=== PATIENT | female | born 1955 | race Caucasian/White ===

== ENCOUNTER 2020-07-06 12:45 | Emergency (ER) | payer MEDICARE, BC, SELFPAY ==
[2020-07-06 12:47] VITALS: BP 110/73; PULSE 59; RESP 16; TEMP 36.6; O2SAT 96; BMI 25.8
[2020-07-06 14:36] VITALS: BP 110/73; PULSE 59; RESP 16; O2SAT 96
--- NOTE | 2020-07-06 14:36 | XRR_ITS ---
PROCEDURE INFORMATION: Exam: XR Right Shoulder Exam date and time: 07/06/2020 3:00 PM Age: 64 years old Clinical indication: Injury or trauma; Fall; Blunt trauma (contusions or hematomas); Shoulder; Right TECHNIQUE: Imaging protocol: XR Right shoulder. Views: 2 or more views. COMPARISON: No relevant prior studies available. FINDINGS: Bones/joints: There is a circumscribed 7 mm subchondral cyst in the humeral head Soft tissues: Normal. XR/XR shoulder RT min 2V* [id number] IMPRESSION: 1. No acute bone abnormality. 2. Subchondral cyst humeral head
[2020-07-06] MEDS: acetaminophen-codeine 300-30mg Tablet 1 TAB PO (14:49)
--- NOTE | 2020-07-06 14:54 | ED_ITS ---
HPI - Back Pain/Injury General: Chief Complaint: Back Pain/Injury Stated Complaint: PAIN LOWER LEGS AND LUMBAR Time Seen by Provider: 07/06/20 14:23 History of Present Illness: HPI Narrative: Patient says she fell at home day was twisting around when she got up from the bed and fell striking her right shoulder. States she hurts all over did not take pain medication. And says she did not really hurting one specific spot. MD elicited complaint: fall Pertinent past history: prior back pain and other (History of brain cancer) Onset (ago): hour(s) Timing: constant and improved Severity: mild Similar Symptoms Previously: Yes Quality: aching Context: turning/twisting Associated symptoms: Reports no associated symptoms; Deny abdominal pain, chills, fever(s), nausea or vomiting Review of Systems Const: Denies: fever(s), chills or body aches Eyes: Denies: change in vision or blurry vision ENMT: Denies: throat pain or nasal congestion Card: Denies: chest pain or dyspnea on exertion Resp: Denies: dyspnea, productive cough or non-productive cough GI: Denies: abdominal pain, nausea or vomiting Musc: Reports: extremity pain and joint pain (Right shoulder on exam) Skin/Breast: Denies: rash Neuro: Denies: headache(s) Psych: Denies: anxiety or depression Pool/Lymph: Denies: easy bruising Physical Exam Const: COMMON NORMALS: no acute distress, average body habitus and patient oriented x3 HENMT: COMMON NORMALS: normocephalic HEAD & SCALP: normal to inspection and normocephalic FACE & SINUS: normal facial exam Eye: COMMON NORMALS: conjunctivae normal GENERAL EYE: appearance normal, both eyes and all related structures CONJUNCTIVA: Yes conjunctivae normal Neck/C-Spine: COMMON NORMALS: no JVD Chest: COMMONS NORMALS: normal inspection of the chest Resp: COMMON NORMALS: normal respiratory effort and clear to auscultation bilaterally AUSCULTATION: clear to auscultation bilaterally Cardio: COMMON NORMALS: no JVD, regular rate and regular rhythm RATE: regular rate RHYTHM: regular rhythm GI: COMMON NORMALS: Normal to inspection, nondistended, normoactive bowel sounds present Extremity: COMMON NORMALS: normal to inspection and full ROM NARRATIVE EXTREMITY EXAM: On place I can find any significant pains when I palpated her right shoulder she is able to move the arm move the shoulder but she said hurts with palpation there is no swelling or bruising Neuro: COMMON NORMALS: patient oriented x3 Course Vital Signs: Vital signs: Vital Signs Temperature 97.8 F 07/06/20 12:47 Pulse Rate 59 L 07/06/20 14:36 Respiratory Rate 16 07/06/20 14:36 Blood Pressure 110/73 07/06/20 14:36 Pulse Oximetry 96 07/06/20 14:36 Coding Level of Care Code ED Digital Coordinator for Jason Ewing
[2020-07-06 15:06] VITALS: BP 104/71; PULSE 62; RESP 14; O2SAT 96
== END 2020-07-06 15:40 | disposition home or self-care (01) ==
PROVIDERS: Emergency Provider Nurse Practitioner Family
DX: M25.511 Pain in right shoulder (principal)
CPT/HCPCS: 12345; 73030; 99281; 99283

== ENCOUNTER 2020-07-14 09:56 | Outpatient (CLI) | payer MEDICARE, SELFPAY ==
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
== END 2020-07-14 09:57 | disposition home or self-care (01) ==
LOC: ONCMED 10:02
PROVIDERS: PCP Nurse Practitioner Family; Visit Provider Internal Medicine Hematology & Oncology
DX: C71.1 Malignant neoplasm of frontal lobe (principal); C79.51 Secondary malignant neoplasm of bone; R53.1 Weakness; R47.1 Dysarthria and anarthria; Z90.710 Acquired absence of both cervix and uterus; Z92.21 Personal history of antineoplastic chemotherapy; Z92.3 Personal history of irradiation; Z79.899 Other long term (current) drug therapy
CPT/HCPCS: 99205

== ENCOUNTER 2020-08-21 22:45 | Emergency (ER) | payer MEDICARE, SELFPAY ==
[2020-08-21 22:52] VITALS: BP 113/75; PULSE 81; RESP 16; TEMP 37.3; O2SAT 96; BMI 24.3
[2020-08-21 23:07] VITALS: BP 117/75; PULSE 79; RESP 22; O2SAT 96
--- NOTE | 2020-08-21 23:08 | CTR_ITS ---
PROCEDURE INFORMATION: Exam: CT Head Without Contrast Exam date and time: 08/21/2020 11:10 PM Age: 65 years old Clinical indication: Altered mental status/memory loss and fever; Prior surgery; Surgery type: Brain resection; Patient HX: AMS with fever. History of brain neoplasm with resection. TECHNIQUE: Imaging protocol: Computed tomography of the head without contrast. Radiation optimization: All CT scans at this facility use at least one of these dose optimization techniques: automated exposure control; mA and/or kV adjustment per patient size (includes targeted exams where dose is matched to clinical indication); or iterative reconstruction. COMPARISON: CT head wo con* [id number] 03/03/2018 10:47 PM RADIATION DOSE METRICS: Total DLP (mGy-cm): 742.9 FINDINGS: Brain: There is a 2.3 x 2.5 x 2.7 cm sized partly cystic mass lesion in the right centrum semiovale which is larger than on CT scan 03/03/2018 and is worrisome for recurrent tumor. This extends into the right external capsule region. There is also appears larger than on outside MRI of 06/25/2020. Cerebral ventricles: Ventricles within normal limits of size. Bones/joints: There is yoselyn hole in the right frontal region not changed. Paranasal sinuses: Visualized sinuses are unremarkable. No fluid levels. Mastoid air cells: Visualized mastoid air cells are well aerated. Soft tissues: High density areas within the tumor could represent some blood product or calcification. Other findings: No additional tumor is identified. CT/CT head wo con* [id number] IMPRESSION: 1. Findings are worrisome for recurrent tumor in the right frontal parietal region. 2. There is possible small hemorrhage within the recurrent tumor. Radiation Dose CTDIVOL = (mGy): DLP = 742.9 (mGy-cm)
--- NOTE | 2020-08-21 23:08 | XRR_ITS ---
PROCEDURE INFORMATION: Exam: XR Chest Exam date and time: 08/21/2020 11:10 PM Age: 65 years old Clinical indication: Patient HX: AMS with fever. History of brain cancer. TECHNIQUE: Imaging protocol: XR of the chest Views: 1 view. COMPARISON: CR Chest 1 [place] [id number] 03/27/2017 9:09 AM FINDINGS: Limitations: The study is made with less than full inspiration. Lungs: There is some mild subsegmental atelectasis at the left lung base. Right lung is clear. Pleural spaces: Unremarkable. No pleural effusion. No pneumothorax. Heart/Mediastinum: Heart is within normal limits of size. Bones/joints: Unremarkable. XR/XR chest 1V portable [id number] IMPRESSION: Mild left basilar atelectasis.
--- NOTE | 2020-08-21 23:09 | ECG_ITS ---
[facility] Test Date: 2020-08-21 Pat Name: Reggie Alvarado Department: Room: Gender: Female Event Marketing Assistant: : 1955 Requested By: Yair Burrell Order Number: [id number] Mattie MD: MIC SORIA Measurements Intervals [place] Rate: 70 P: 72 [place]: 193 QRS: 76 QRSD: 85 T: 90 QT: 367 QTc: 398 Interpretive Statements SINUS RHYTHM MINIMAL ST DEPRESSION [0.025+ mV ST DEPRESSION] Compared to ECG 10/23/2017 11:35:50 ST (T wave) deviation now present Sinus arrhythmia no longer present Electronically Signed On 08-22-2020 18:46:08 BUSINESS SOLUTIONS CONSULTANT by MIC SORIA [id number]
[2020-08-21] MEDS: sodium chloride 0.9% 1,000 ML 999 ML IV (23:26)
[2020-08-21 23:41] LABS: Basophils % 0.3 %; Eosinophils % 0.5 %; Hematocrit 38.8 % (37.0-47.0); Hemoglobin 13.1 g/dL (11.5-15.3); Lymphocytes # 0.8 10^3/uL (0.8-4.8); Lymphocytes % 12.5 %; Mean Corpuscular HGB Conc 33.8 g/dL (30.0-36.0); Mean Corpuscular Hemoglobin 31.6 pg (28.0-34.0); Mean Corpuscular Volume 93.7 fL (81-99); Mean Platelet Volume 9.2 fL (7.4-10.4); Monocytes # 0.4 10^3/uL (0.2-0.9); Monocytes % 5.6 %; Neutrophils % 80.3 %; Nucleated Red Blood Cells % 0 %; Platelet Count 181 10^3/cmm (130-400); Red Blood Count 4.14 10^6/uL (4.1-5.3); Red Cell Distribution Width 13.2 % (12.1-15.1); White Blood Count 6.5 10^3/uL (4.0-10.0)
--- NOTE | 2020-08-21 23:41 | PC.NURSE ---
EKG done at 2340 and shown to ER doctor
[2020-08-21 23:59] LABS: Alanine Aminotransferase 15 U/L (0-33); Albumin Level 3.4 g/dL (3.5-5.2); Alkaline Phosphatase 76 IU/L (35-105); Anion Gap 13.1 (5-19); Aspartate Amino Transferase 12 U/L (0-32); Blood Urea Nitrogen 25 mg/dL (8-23); C Reactive Protein 58.5 mg/L (0.0-4.9); Calcium 8.3 mg/dL (8.5-10.5); Carbon Dioxide 26 mmol/L (22-29); Chloride 105 mmol/L (98-107); Creatine Phosphokinase 18 U/L (26-192); Globulin 2.5 g/dL (1.3-4.6); Glomerular Filtration Rate 161.2 mL/min (90-130); Glucose 122 mg/dL (65-115); Magnesium 2.3 mg/dL (1.7-2.3); Osmolality Calculated 298 mOsm/kg (285-295); Potassium 3.1 mmol/L (3.5-5.1); Sodium 141 mmol/L (136-145); Total Bilirubin 0.5 mg/dL (0.15-1.2); Total Protein 5.9 g/dL (6.6-8.7)
[2020-08-22] VITALS (11 sets, daily range): BP systolic 109–145; BP diastolic 60–83; PULSE 72–85; RESP 16–18; O2SAT 92–96
[2020-08-22] LABS: Lactate (Lactic Acid level) 1.2 mmol/L (0.5-2.2)
[2020-08-22 00:02] LABS: Alcohol Level < 10 mg/dL (0-10)
[2020-08-22 00:05] LABS: Ammonia 50 umol/L (11-51)
[2020-08-22 00:07] LABS: SARS Covid-2 Antigen Negative (Negative)
--- NOTE | 2020-08-22 00:07 | PC.NURSE ---
patient report received from SHERICE Silver and care transferred to SHERICE Dixon
--- NOTE | 2020-08-22 00:51 | PC.NURSE ---
patient given warm blanket by this nurse, adjusted in bed with help from secondary nurse.
[2020-08-22 01:46] LABS: Urine Color Yellow (Yellow); pH Urine 6 (5-7)
[2020-08-22 01:47] LABS: Add Urine Microscopic? YES; Bilirubin Urine Neg (Negative); Blood Urine Trace (Negative); Glucose Urine UA 2+ (Normal); Ketones Urine Negative (Negative); Leukocyte Esterase Urine 2+ (Negative); Nitrate Urine Negative (Negative); Protein Urine Neg (Negative); Urobilinogen Urine 4 mg/dL (Negative)
[2020-08-22 01:56] LABS: Add Urine Culture? No; Bacteria Urine 2+ /hpf; Squamous Epithelial Cell Urine 25-40 /hpf (0-5); WBC Urine 15-25 /hpf (0-5)
[2020-08-22 02:03] LABS: Amphetamines Screen Urine Negative (Negative); Barbiturates Screen Urine Negative (Negative); Benzodiazepines Screen Urine Positive (Negative); Cocaine Screen Urine Negative (Negative); Opiate Screen Urine Positive (Negative); PCP Screen Urine Negative (Negative); THC Screen Urine Positive (Negative)
--- NOTE | 2020-08-22 03:11 | W.ED.WEAKNES ---
HPI - Weakness General: Chief complaint: Weakness Stated complaint: weakness and ams Time Seen by Provider: 08/21/20 22:49 History of Present Illness: HPI Narrative: 65-year-old female with a known brain tumor. She presents with worsening weakness, some mental status changes including confusion over the past couple of days. She notes that she has a significant headache, which she usually does not have, even with her tumor. No fever. She is vomited a couple of times. MD Complaint: focal weakness Onset (ago): day(s) Duration: constant Associated symptoms: Reports confusion, headache(s), nausea and vomiting; Denies chest pain or fever(s) Review of Systems Const: Reports: body aches; Denies: fever(s) Eyes: Denies: change in vision ENMT: Reports: nasal congestion and post nasal drip; Denies: throat pain Card: Denies: chest pain or palpitations Resp: Denies: dyspnea, productive cough or non-productive cough GI: Reports: nausea and vomiting; Denies: abdominal pain or hematemesis Neuro: Reports: headache(s), weakness in extremities, dizziness and confusion Physical Exam Const: GENERAL APPEARANCE: ill appearing and frail appearing ORIENTATION/CONSCIOUSNESS: Yes oriented to person, Yes oriented to place and Yes oriented to time HENMT: COMMON NORMALS: normocephalic, external ears normal and Normal external nose present HEAD & SCALP: normocephalic FACE & SINUS: normal facial exam NOSE: Normal external nose present and No nasal discharge present EXTERNAL EAR: Yes external ears normal Eye: COMMON NORMALS: Equal, round and reactive pupils present, EOMs intact bilaterally and conjunctivae normal EYELID: eyelids normal CONJUNCTIVA: Yes conjunctivae normal PUPIL: Yes Equal, round and reactive pupils present Neck/C-Spine: COMMON NORMALS: no meningeal signs GENERAL: No tracheal deviation Chest: COMMONS NORMALS: normal inspection of the chest CHEST: No tenderness Resp: COMMON NORMALS: clear to auscultation bilaterally EFFORT & INSPECTION: No tachypneic, No respiratory distress, No retractions, No uses accessory muscles and No tracheal deviation AUSCULTATION: clear to auscultation bilaterally, no rhonchi, no wheezes and lung sounds not diminished Cardio: COMMON NORMALS: regular rate and regular rhythm RATE: regular rate RHYTHM: regular rhythm HEART SOUNDS: no murmurs PERIPHERAL PULSES: radial pulses present GI: INSPECTION: No abdominal distension AUSCULTATION: No Hyperactive bowel sounds present and No Hypoactive bowel sounds present PALPATION: No Guarding due to palpation present (GI) and No Rigid due to palpation PERCUSSION: no dullness to percussion and no tympanic to percussion : COMMON NORMALS: Yes no CVA tenderness BLADDER/KIDNEY EXAM: Yes no CVA tenderness Back/Pelvis: COMMON NORMALS: no CVA tenderness Neuro: SENSORIUM/ORIENTATION: Yes oriented to person, Yes oriented to place and Yes oriented to time MENINGEAL SIGNS: Yes no meningeal signs COORDINATION/BALANCE: [id number] test normal SPEECH: speech normal GAIT: Yes Unable to assess gait MOTOR EXAM: Abnormal motor strength present (Dense left-sided upper and lower extremity weakness) COORDINATION: [id number] test normal Psych: COMMON NORMALS: mental status grossly normal Skin: COMMON NORMALS: no rashes or lesions noted GENERAL SKIN EXAM: no rashes or lesions noted Course Consultations: Consultation #1: Josafat Vital Signs: Vital signs: Vital Signs Temperature 99.2 F 08/21/20 22:52 Pulse Rate 83 08/22/20 05:09 Respiratory Rate 16 08/22/20 05:51 Blood Pressure 117/71 08/22/20 04:42 Pulse Oximetry 93 08/22/20 05:51 MDM - Weakness MDM Narrative: Medical decision making narrative: 65-year-old female with history of glioblastoma. She has dense left-sided weakness. She is having trouble getting around at home. She has a headache that is somewhat new. She has some mild confusion, although on my exam, she is awake and oriented. She knows month and year. She can answer all questions about her medical history appropriately and accurately. Laboratory shows a potassium of 3.1. She has a urinary tract infection. Head CT shows an increase in size of prior seen recurrent tumor, with possible hemorrhage in the substance of the tumor. I spoke with neurosurgery at [facility] in [facility], where she had her first resection. They state there is likely nothing surgical to do, but since we do not have neurosurgery or neurology services available to go ahead and send the patient. Dr. Case from oncology has accepted the patient. Upon notifying the patient of this, she stated that she would rather go home. We canceled her admission, and her ambulance transport so that she could go home only to find out that she has no ride home, and that her son urged her to stay. Transfer has been rearranged, again for [facility]. She will go by ground when EMS available. Lab Data: Labs: Lab Results 08/21/20 08/21/20 08/21/20 Range/Units 23:30 23:30 23:30 WBC 6.5 (4.0-10.0) 10^3/ uL RBC 4.14 (4.1-5.3) 10^6/u L Hgb 13.1 (11.5-15.3) g/dL Hct 38.8 (37.0-47.0) % MCV 93.7 (81-99) fL MCH 31.6 (28.0-34.0) pg MCHC 33.8 (30.0-36.0) g/dL RDW 13.2 (12.1-15.1) % Plt Count 181 (130-400) 10^3/c mm MPV 9.2 (7.4-10.4) fL Neut % (Auto) 80.3 % Lymph % (Auto) 12.5 % [place] % (Auto) 5.6 % Eos % (Auto) 0.5 % Baso % (Auto) 0.3 % Neut # (Auto) 5.20 (1.8-7.7) 10^3/u L Lymph # (Auto) 0.8 (0.8-4.8) 10^3/u L [place] # (Auto) 0.4 (0.2-0.9) 10^3/u L Eos # (Auto) 0.0 (0.0-0.8) 10^3/u L Baso # (Auto) 0.0 (0.0-0.1) 10^3/u L Nucleated RBC % (a uto) 0 % Nucleated RBCs # 0.0 /100WBC Sodium 141 (136-145) mmol/L Potassium 3.1 L (3.5-5.1) mmol/L Chloride 105 (98-107) mmol/L Carbon Dioxide 26 (22-29) mmol/L Anion Gap 13.1 (5-19) BUN 25 H (8-23) mg/dL Creatinine 0.4 L (0.5-0.9) mg/dL GFR Calculation 161.2 H (90-130) mL/min Glucose 122 H (65-115) mg/dL Calculated Osmolal ity 298 H (285-295) mOsm/k g Lactate 1.2 (0.5-2.2) mmol/L Calcium 8.3 L (8.5-10.5) mg/dL Magnesium 2.3 (1.7-2.3) mg/dL Total Bilirubin 0.5 (0.15-1.2) mg/dL AST 12 (0-32) U/L ALT 15 (0-33) U/L Alkaline Phosphata se 76 (35-105) IU/L Ammonia (11-51) umol/L Creatine Kinase 18 L (26-192) U/L C-Reactive Protein 58.5 H (0.0-4.9) mg/L Total Protein 5.9 L (6.6-8.7) g/dL Albumin 3.4 L (3.5-5.2) g/dL Globulin 2.5 (1.3-4.6) g/dL Urine Color (Yellow) Urine Appearance (CLEAR) Urine pH (5-7) Ur Specific Gravit y (1.005-1.030) Urine Protein (Negative) Urine Glucose (UA) (Normal) Urine Ketones (Negative) Urine Blood (Negative) Urine Nitrate (Negative) Urine Bilirubin (Negative) Urine Urobilinogen (Negative) mg/dL Ur Leukocyte Lauren ase (Negative) Urine RBC (0-2) /hpf Urine WBC (0-5) /hpf Ur Squamous Epith Cells (0-5) /hpf Amorphous Sediment Urine Bacteria (NONE) /hpf Urine Opiates Scre en (Negative) ng/mL Ur Barbiturates Sc reen (Negative) ng/mL Ur Phencyclidine S crn (Negative) ng/mL Ur Amphetamines Sc reen (Negative) ng/mL U Benzodiazepines Scrn (Negative) ng/mL Urine Cocaine Scre en (Negative) ng/mL U Marijuana (THC) Screen (Negative) ng/mL Ethyl Alcohol < 10 (0-10) mg/dL SARS-CoV-2 Ag (Rap id) (Negative) 08/21/20 08/21/20 08/22/20 Range/Units 23:30 23:30 00:48 WBC (4.0-10.0) 10^3/ uL RBC (4.1-5.3) 10^6/u L Hgb (11.5-15.3) g/dL Hct (37.0-47.0) % MCV (81-99) fL MCH (28.0-34.0) pg MCHC (30.0-36.0) g/dL RDW (12.1-15.1) % Plt Count (130-400) 10^3/c mm MPV (7.4-10.4) fL Neut % (Auto) % Lymph % (Auto) % [place] % (Auto) % Eos % (Auto) % Baso % (Auto) % Neut # (Auto) (1.8-7.7) 10^3/u L Lymph # (Auto) (0.8-4.8) 10^3/u L [place] # (Auto) (0.2-0.9) 10^3/u L Eos # (Auto) (0.0-0.8) 10^3/u L Baso # (Auto) (0.0-0.1) 10^3/u L Nucleated RBC % (a uto) % Nucleated RBCs # /100WBC Sodium (136-145) mmol/L Potassium (3.5-5.1) mmol/L Chloride (98-107) mmol/L Carbon Dioxide (22-29) mmol/L Anion Gap (5-19) BUN (8-23) mg/dL Creatinine (0.5-0.9) mg/dL GFR Calculation (90-130) mL/min Glucose (65-115) mg/dL Calculated Osmolal ity (285-295) mOsm/k g Lactate (0.5-2.2) mmol/L Calcium (8.5-10.5) mg/dL Magnesium (1.7-2.3) mg/dL Total Bilirubin (0.15-1.2) mg/dL AST (0-32) U/L ALT (0-33) U/L Alkaline Phosphata se (35-105) IU/L Ammonia 50 (11-51) umol/L Creatine Kinase (26-192) U/L C-Reactive Protein (0.0-4.9) mg/L Total Protein (6.6-8.7) g/dL Albumin (3.5-5.2) g/dL Globulin (1.3-4.6) g/dL Urine Color Yellow (Yellow) Urine Appearance Sl cloudy A (CLEAR) Urine pH 6 (5-7) Ur Specific Gravit y 1.020 (1.005-1.030) Urine Protein Neg (Negative) Urine Glucose (UA) 2+ (Normal) Urine Ketones Negative (Negative) Urine Blood Trace H (Negative) Urine Nitrate Negative (Negative) Urine Bilirubin Neg (Negative) Urine Urobilinogen 4 H (Negative) mg/dL Ur Leukocyte Lauren ase 2+ H (Negative) Urine RBC 10-15 H (0-2) /hpf Urine WBC 15-25 H (0-5) /hpf Ur Squamous Epith Cells 25-40 H (0-5) /hpf Amorphous Sediment Not Reportable Urine Bacteria 2+ H (NONE) /hpf Urine Opiates Scre en (Negative) ng/mL Ur Barbiturates Sc reen (Negative) ng/mL Ur Phencyclidine S crn (Negative) ng/mL Ur Amphetamines Sc reen (Negative) ng/mL U Benzodiazepines Scrn (Negative) ng/mL Urine Cocaine Scre en (Negative) ng/mL U Marijuana (THC) Screen (Negative) ng/mL Ethyl Alcohol (0-10) mg/dL SARS-CoV-2 Ag (Rap id) Negative (Negative) 08/22/20 Range/Units 00:48 WBC (4.0-10.0) 10^3/ uL RBC (4.1-5.3) 10^6/u L Hgb (11.5-15.3) g/dL Hct (37.0-47.0) % MCV (81-99) fL MCH (28.0-34.0) pg MCHC (30.0-36.0) g/dL RDW (12.1-15.1) % Plt Count (130-400) 10^3/c mm MPV (7.4-10.4) fL Neut % (Auto) % Lymph % (Auto) % [place] % (Auto) % Eos % (Auto) % Baso % (Auto) % Neut # (Auto) (1.8-7.7) 10^3/u L Lymph # (Auto) (0.8-4.8) 10^3/u L [place] # (Auto) (0.2-0.9) 10^3/u L Eos # (Auto) (0.0-0.8) 10^3/u L Baso # (Auto) (0.0-0.1) 10^3/u L Nucleated RBC % (a uto) % Nucleated RBCs # /100WBC Sodium (136-145) mmol/L Potassium (3.5-5.1) mmol/L Chloride (98-107) mmol/L Carbon Dioxide (22-29) mmol/L Anion Gap (5-19) BUN (8-23) mg/dL Creatinine (0.5-0.9) mg/dL GFR Calculation (90-130) mL/min Glucose (65-115) mg/dL Calculated Osmolal ity (285-295) mOsm/k g Lactate (0.5-2.2) mmol/L Calcium (8.5-10.5) mg/dL Magnesium (1.7-2.3) mg/dL Total Bilirubin (0.15-1.2) mg/dL AST (0-32) U/L ALT (0-33) U/L Alkaline Phosphata se (35-105) IU/L Ammonia (11-51) umol/L Creatine Kinase (26-192) U/L C-Reactive Protein (0.0-4.9) mg/L Total Protein (6.6-8.7) g/dL Albumin (3.5-5.2) g/dL Globulin (1.3-4.6) g/dL Urine Color (Yellow) Urine Appearance (CLEAR) Urine pH (5-7) Ur Specific Gravit y (1.005-1.030) Urine Protein (Negative) Urine Glucose (UA) (Normal) Urine Ketones (Negative) Urine Blood (Negative) Urine Nitrate (Negative) Urine Bilirubin (Negative) Urine Urobilinogen (Negative) mg/dL Ur Leukocyte Lauren ase (Negative) Urine RBC (0-2) /hpf Urine WBC (0-5) /hpf Ur Squamous Epith Cells (0-5) /hpf Amorphous Sediment Urine Bacteria (NONE) /hpf Urine Opiates Scre en Positive H (Negative) ng/mL Ur Barbiturates Sc reen Negative (Negative) ng/mL Ur Phencyclidine S crn Negative (Negative) ng/mL Ur Amphetamines Sc reen Negative (Negative) ng/mL U Benzodiazepines Scrn Positive H (Negative) ng/mL Urine Cocaine Scre en Negative (Negative) ng/mL U Marijuana (THC) Screen Positive H (Negative) ng/mL Ethyl Alcohol (0-10) mg/dL SARS-CoV-2 Ag (Rap id) (Negative) Discharge Plan Discharge Patient Disposition: Xfer Other Clinical Impression: Glioblastoma Urinary tract infection Qualifiers: Urinary tract infection type: acute cystitis Hematuria presence: with hematuria Qualified Code(s): N30.01 - Acute cystitis with hematuria Condition: Stable Referrals: Enmanuel,ADAM Mcfadden [Primary Care Provider] - 4-7 days Discharge Diet: Advance as tolerated Discharge Activity: Increase activity as tolerated Activity Restrictions/Additional Instructions: Return for worsening mental status, worsening weakness, fever greater than 100 despite 2-3 doses of antibiotics, vomiting liquids or medications, worsening pain, other concerning symptoms. Coding Level of Care Code ED Prop Sawyer for Jason Fwpushpa Exam Comprehensive
[2020-08-22] MEDS: morphine 4 mg/mL SDV 1 mL IVP (04:39)
[2020-08-22] MEDS: ondansetron 2 mg/ML SDV 2 mL 4 MG IVP ×2 (04:39→05:51)
[2020-08-22] MEDS: potassium chloride ER 20 mEq Tablet 40 MEQ PO (04:40)
[2020-08-22] MEDS: cefTRIAXone 1,000 MG in sodium chloride 0.9% (plus) 50 ML 100 MG IV (05:08)
[2020-08-22] MEDS: HYDROmorphone 1 mg/mL INJ 1 mL IVP (05:51)
== END 2020-08-22 07:34 | disposition other institution (70) ==
PROVIDERS: Emergency Provider Emergency Medicine; PCP Nurse Practitioner Family
DX: C71.9 Malignant neoplasm of brain, unspecified (principal); N30.01 Acute cystitis with hematuria
CPT/HCPCS: 70450; 71045; 80053; 80306; 80307; 81001; 82140; 82550; 83605; 83735; 85025; 86140; 87040; 87426; 93005; 96365; 96375; 96376; 99285; J0696; J1170; J2270; J2405; J7030